=== PATIENT | male | born 1990 | race African-American/Black ===

== ENCOUNTER 2023-10-25 19:02 | Emergency (ER) | payer MEDICARE, MEDICAID ==
[2023-10-25] MEDS ORDERED: Acetaminophen 500 MG TAB ONE (21:46)
[2023-10-25] MEDS ORDERED: Boostrix 0.5 ML (Tdap) VIAL (>/=7 yrs of age) ONE (21:46)
== END 2023-10-25 21:23 | disposition home or self-care (01) ==
LOC: CSHERS 19:02
DX: S80.11XA Contusion of right lower leg, initial encounter (principal); L03.115 Cellulitis of right lower limb; R03.0 Elevated blood-pressure reading, without diagnosis of hypertension; Z23 Encounter for immunization; W19.XXXA Unspecified fall, initial encounter
CPT/HCPCS: 90471; 90715